=== PATIENT | female | born 1990 | race Caucasian/White ===

== ENCOUNTER 2025-05-11 05:25 | Inpatient (IN) ==
--- NOTE | 2025-05-08 10:28 | Anesthesiology Consultation ---
Date of Service May 08, 2025 Assessment & Plan (1) Encounter for pre-operative examination: - Per optical design engineer on 05/08/25: No known infectious disease contacts, current infectious disease symptoms in past 10 days or COVID positive test result in the past 30 days. Chart Review Chart Review: data entry associate initiated History Surgery Operation Date: 05/11/25 08:50 Proposed Procedures p Section in LD (Delivery of baby through abdominal incision ) - Lynnette Rivera MD, FACOG Height/Weight Height: 5 ft 3 in Weight: 83.915 kg Allergies Allergy/AdvReac Type Severity Reaction Status Date / Time Cephalosporins Allergy Unknown Hives Verified 05/08/25 09:38 Penicillins Allergy Unknown Hives Uncoded 05/08/25 09:38 Medications Home Medications Medication Instructions Recorded Confirmed Last Taken fluticasone propionate 50 1 spray intranasal DAILY PRN 02/09/25 05/08/25 Unknown mcg/actuation nasal Congestion spray,suspension breast pump #1 ea 04/13/25 05/03/25 Unknown aspirin 81 mg tablet,delayed 81 mg PO HS 05/08/25 05/08/25 Unknown release prenat.vits,emilia,vpd-pbyx-uhwzi 1 tab PO HS 05/08/25 05/08/25 Unknown Past Medical History Medical History (Updated 05/08/25 @ 10:27 by Jamila Vincent PA-C) History of COVID-19 approx 2021 or 2022. No hx hospitalization. Polycystic ovary syndrome Twin gestation in third trimester breech presentation Past Family History Family History Mother Hypertension Diabetes Father COPD (chronic obstructive pulmonary disease) Dyslipidemia Basal cell carcinoma (BCC) Sister No problems noted. Sister Dyslipidemia Denies family history of Ovarian cancer Prostate cancer Myocardial infarction Breast cancer Colorectal cancer Past Surgical History Surgical History S/P wisdom tooth extraction Social History Smoking Status: Never smoker Do You Dip or Chew Tobacco: No Hx Alcohol Use: Yes (hx social, none while ) Alcohol type: beer, wine and hard liquor Hx Substance Use: No substance use type: does not use
[2025-05-11] MEDS ORDERED: LACTATED RINGER'S 1,000 ML IV SCH ×2 (05:30→08:51)
[2025-05-11 05:56] LABS: Hematocrit (blood only) 36.5 % (37.0-47.0); Hemoglobin 12.4 g/dl (12.0-16.0); Mean Corpuscular Hemoglobin 30.6 pg (25.0-34.0); Mean Corpuscular Volume 90.1 fL (80.0-100.0); Platelet Count 208 K/uL (130-400); RDW Standard Deviation 42.1 fL (36.4-46.3); Red Blood Count 4.05 M/uL (4.20-5.40); White Blood Count 8.35 K/ul (4.8-10.8)
[2025-05-11] MEDS: LACTATED RINGER'S 1,000 ML IV SCH ×2 (05:58→07:11)
[2025-05-11] MEDS ORDERED: CITRIC ACID/SODIUM CITRATE 15 ML UDC PO SCH (06:00)
[2025-05-11] MEDS ORDERED: ACETAMINOPHEN 500 MG TAB PO SCH (06:00)
[2025-05-11] MEDS: ACETAMINOPHEN 500 MG TAB PO SCH (06:28)
[2025-05-11] MEDS: CLINDAMYCIN/D5W 900 MG/50 ML BAG IV SCH (07:11)
--- NOTE | 2025-05-11 07:13 | History & Physical Report ---
Date of Service May 11, 2025 Assessment & Plan (1) Dichorionic diamniotic twin gestation: Plan: section. The patient was counseled to the nature of the procedure including alternatives such as labor. Risks were discussed including bleeding infection injury to bowel bladder ureter vessels and even baby. Deep Vein thrombosis, pulmonary embolus discussed. Breakdown of incision reviewed. Deep vein thrombosis pulmonary embolus hernia and failure of the incision to heal were discussed Patient verbalized understanding of this and was given ample time to ask questions Note insert twin presentation breech breech we discussed increased complication rates with twins including hemorrhage fully discussed with the patient Admission and Anticipated Discharge Date Admission Date: May 11, 2025 History of Present Illness Primary Care Provider: Iona Ramey MD DD Calculator Estimated Delivery Date Method Current WG Current Estimate 05/23/25 LMP (Certain) 38w 1d Other Estimates 05/23/25 Ultrasound #1 38w 1d # 2 LMP: 08/16/24 : 1 Full term: 0 Premature: 0 Total Number of Induced Abortions: 0 Total Number of Spontaneous Abortions: 0 Ectopics: 0 Multiple births: 0 Number of Living Children: 0 and Delivery Plans Conceived on Femara IUGR TWIN A - resolved at 27wks *Twice weekly NST/DVP@Dx *Weekly doppler@Dx *Growth US Q3-4wk @Dx All Twins *Baby ASA daily start 12-28wks until delivery *Anatomy scan @20wks *Serial growth US/S starting @24wks *Wkly NST's @32wks, twice wkly @36wks(nml growth) *Twice wkly NST's @32wks, ICSI or abnml growth *MD visits Q2wks @24wks & Qwk @32wks Twin Del Plan *DI/DI Deliver @38wks C/S SCHEDULED FOR 05/11/[address] SWEENEY AND DR. MENDOZA ASSIST Panorama could not yield results *pt declines redraw Allergies Allergy/AdvReac Type Severity Reaction Status Date / Time Cephalosporins Allergy Unknown Hives Verified 05/11/25 05:39 Penicillins Allergy Unknown Hives Verified 05/11/25 05:39 Home Medications Medication Instructions Recorded Confirmed Type breast pump #1 ea 04/13/25 05/10/25 Rx aspirin 81 mg tablet,delayed 81 mg PO HS 05/08/25 05/11/25 History release prenat.vits,emiila,utz-isgg-itlip 1 tab PO HS 05/08/25 05/11/25 History Patient History Medical History History of COVID-19 approx 2021 or 2022. No hx hospitalization. Polycystic ovary syndrome Twin gestation in third trimester breech presentation Surgical History S/P wisdom tooth extraction Family History Mother Hypertension Diabetes Father COPD (chronic obstructive pulmonary disease) Dyslipidemia Basal cell carcinoma (BCC) Sister No problems noted. Sister Dyslipidemia Denies family history of Ovarian cancer Prostate cancer Myocardial infarction Breast cancer Colorectal cancer Social History Smoking Status: Never smoker Second Hand Exposure: No; Do You Dip or Chew Tobacco: No; Hx Alcohol Use: Yes (hx social, none while ) Alcohol type: beer, wine and hard liquor Alcohol Intake Frequency: Monthly or Less Hx Substance Use: No Preferred Language: [place] Communication Ability: Effective Visual Impairment: No Limitations Hearing Ability: Normal Lens Polisher Hand Required: No Beliefs That Will Affect Care: None marital status: marital status details: Stu Wu (40) [phone] Current Living Situation: Spouse Current Living Situation Comment: lives with spouse, cat-spouse changing litter current occupational status: employed 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 [employer] Other Information That Helps Us Care for You: No Feels Safe at Home: Yes Safety Concerns: Feels Safe At This Time Childhood Exposure to Second-Hand Smoke: Yes Diet: regular caffeine: Yes during the past year weight has: increased > 10 lbs Dental Care, Regularly: No Physical Activity Frequency: Daily Seatbelt Use: always Sunscreen Use: Yes Assistive Devices: Glasses Physical Exam Constitutional: WD/WN, vitals as above well developed and well nourished Respiratory: normal respiratory effort, lungs clear to auscultation normal respiratory effort Cardiovascular: RRR, no murmur, no edema Gastrointestinal (Abdomen): normal bowel sounds, soft, nontender, no hepatosplenomegaly Results & Data Vital Signs (Past 12 Hours) Vital Signs Temp Pulse Resp BP O2 Del Method 05/11/25 07:04 Room Air 05/11/25 06:59 18 05/11/25 06:59 98.2 F 76 18 123/73 05/11/25 06:58 76 123/73 05/11/25 05:42 86 123/74 05/11/25 05:40 98.2 F 18 Coding Level of Care Code None Diagnoses Dichorionic diamniotic twin gestation O30.049
[2025-05-11] MEDS ORDERED: PHENYLEPHRINE HCL 25 MG/250 ML NSS IV ONE (07:33)
[2025-05-11] MEDS: CITRIC ACID/SODIUM CITRATE 15 ML UDC PO SCH (07:34)
[2025-05-11] MEDS ORDERED: MoRPHine SULFATE PF 1 MG/ML 10 ML AMP/VIAL ONE (07:35)
[2025-05-11] MEDS: GENTAMICIN SULFATE 420 MG in DEXTROSE 5% 100 ML IV SCH (07:53)
[2025-05-11] MEDS ORDERED: OXYTOCIN 10 UNITS/ML VIAL ONE (07:58)
[2025-05-11] MEDS ORDERED: ONDANSETRON INJ 2 MG/ML 2 ML VIAL ONE (07:58)
[2025-05-11] MEDS: CARBOPROST TROMETHAMINE 250 MCG/ML AMPUL IM ONE (08:10)
[2025-05-11] MEDS ORDERED: METOCLOPRAMIDE HCL INJ 5 MG/ML 2 ML VIAL ONE (08:23)
[2025-05-11] MEDS ORDERED: NALOXONE HCL 0.4 MG/1 ML VIAL/CARP IV PRN ×2 (08:28→08:52)
[2025-05-11] MEDS ORDERED: LACTATED RINGER'S 500 ML IV PRN ×2 (08:28→08:52)
[2025-05-11] MEDS ORDERED: diphenhydrAMINE 50 MG/ML VIAL IV PRN ×2 (08:28→08:52)
[2025-05-11] MEDS ORDERED: MoRPHine SULFATE 2 MG/ML CARP IV PRN ×2 (08:28→08:52)
[2025-05-11] MEDS ORDERED: HYDROmorphone INJ 0.5 MG/0.5 ML SYR IV PRN ×2 (08:28→08:52)
[2025-05-11] MEDS ORDERED: MEPERIDINE HCL 25 MG/ML CARP/VIAL IV PRN ×2 (08:28→08:52)
[2025-05-11] MEDS ORDERED: NALOXONE HCL 0.08 MG in SYRINGE 1.8 ML IV PRN ×2 (08:28→08:52)
[2025-05-11] MEDS ORDERED: NALOXONE HCL 1 MG in SODIUM CHLORIDE 0.9% 1,000 ML IV PRN ×2 (08:28→08:52)
[2025-05-11] MEDS ORDERED: NALBUPHINE HCL INJ 10 MG/ML AMP IV PRN ×2 (08:28→08:52)
[2025-05-11] MEDS ORDERED: ONDANSETRON INJ 2 MG/ML 2 ML VIAL IV PRN ×2 (08:28→08:52)
[2025-05-11] MEDS ORDERED: PROMETHAZINE 6.25 MG/50.25 ML BAG IV PRN ×2 (08:28→08:52)
[2025-05-11] MEDS ORDERED: DC INTRASPINAL MORPHINE SCH ×2 (08:30→09:00)
[2025-05-11] MEDS ORDERED: SODIUM CHLORIDE 0.9% 1,000 ML IV SCH (08:30)
[2025-05-11] MEDS ORDERED: NO NARCOTICS OR SEDATIVES SCH ×2 (08:30→09:00)
--- NOTE | 2025-05-11 08:47 | Operative Report ---
Post Operative Report Pre & Post Diagnosis Operation Date: 05/11/25 07:30 Pre-Op Diagnosis: Dichorionic diamniotic twin gestation I identified the patient and participated in the time-out.: Yes Procedure Operation Date: 05/11/25 07:30 Low segment transverse section Surgeon Lynnette Rivera MD, FACOG Water Plant Operator Dr. Trevino Quantitative Blood Loss (QBL) 395 Findings Consistent with Post-Op Diagnosis Specimens Cord blood placenta Description of Procedure Regional anesthetic had been given by anesthesia patient was prepped and draped with a leftward tilt preoperative antibiotics had been given in appropriate timing by anesthesiology. Once the prep was allowed to fully dry timeout was performed. Pickups with teeth were used to test the incision area was found to be adequate for incision as the patient did not feel sharp pain. Scalpel was used to make a Pfannenstiel incision on the lower abdomen. We then cut through the subcutaneous fat down to the level of the anterior rectus sheath fascia this was cut in the midline and then extended laterally with the curved Fuller scissors. At this stage we then placed 2 Panfilo clamps on the anterior aspect of the fascia. Using the curved Fuller's we are able to dissect the fascia superiorly away from the rectus muscles. Care was taken to maintain hemostasis. Pnafilo clamps were then placed to the inferior aspect of the anterior sheath of the fascia. Fascia was then dissected away from the rectus muscles inferiorly towards the pubic bone. A Panfilo was then placed in the midline both inferiorly and superiorly. This was to allow exposure by retraction rectus muscles were in the midline with were then able to cut through the peritoneum and then enter the peritoneal cavity. Opening was enlarged to allow exposure of the peritoneal cavity both superiorly and inferiorly. Once adequate space was obtained a bladder retractor was placed to expose the lower segment Metzenbaums were used to dissect the bladder flap inferiorly away from the uterus. This was done sharply bladder retractor was then repositioned to expose the lower segment of the uterus Fresh scalpel was used to make a low transverse incision on the uterus. Uterus was then entered bluntly with the operators finger, membranes ruptured and the opening was enlarged using the operators fingers bluntly pulling superiorly and inferiorly to allow exposure. Care was taken to enter the uterine cavity without rupture of membranes baby a was footling breech I was able to grab the foot without rupture of membranes and then rupture the membranes the other foot was then easily grasped gentle traction on the baby with the back anterior delivering then the torso the arms were swept anteriorly resulting in easy delivery of the head there was no excessive extension of the neck live vigorous female The exact same process was repeated on the second baby including not rupturing membranes until the foot was grasped and then delivering an footling breech torso arms swept forward towards the chest and then delivery of the head once both deliveries were done another live vigorous female infant cord had been clamped curved clamps on a straight clamps on be placenta was removed with traction we ensured all placenta was removed with a sponge. Uterus was then exteriorized. IV Pitocin had been started by anesthesia tone improved there were no extensions the uterus was then closed using 0 Monocryl in a 2 layer closure the first layer closed in a running locked fashion from left to right and then a second closure from left to right in a running nonlocked fashion. At this stage hemostasis was excellent. Uterus was placed back in the peritoneal cavity with suction irrigation out and inspection of the uterus at this stage revealed excellent hemostasis. Note I did use Hemabate not because the uterus was excessively boggy but because of the nature of twins with a higher propensity towards uterine atony with twins Retractors were removed urine color was clear at this stage of the case we inspected the rectus muscles they were hemostatic fascia was closed with 0 Vicryl subcutaneous fat was irrigated and closed with 3-0 Vicryl skin closed with 4-0 subcuticular Monocryl Note the adnexa and uterus were normal there were no uterine septum I attest to the content of the Intraoperative Record and any orders documented therein. Any exceptions are noted below. OB Procedure Charges 23030 (Twins!)
[2025-05-11] MEDS ORDERED: SENNA 8.6 MG TAB PO PRN (08:51)
[2025-05-11] MEDS ORDERED: MAGNESIUM HYDROXIDE SUSP 30 ML UDC PO PRN (08:51)
[2025-05-11] MEDS ORDERED: HYDROCORTISONE ACETATE 25 MG SUPP PR PRN (08:51)
[2025-05-11] MEDS ORDERED: BENZOCAINE 20% SPRY 85 APPLN/85 GM CAN EXT PRN (08:51)
[2025-05-11] MEDS ORDERED: CALCIUM CARBONATE 500 MG CHEWABLE TAB PO PRN (08:51)
--- NOTE | 2025-05-11 08:53 | Anesthesiology Progress Note ---
Date of Service May 11, 2025 Anesthesia Post Procedure Vital Signs Vital Signs: Temp Pulse Resp BP Pulse Ox O2 Del Method 05/11/25 08:51 73 98 05/11/25 08:47 68 102/59 L 05/11/25 08:46 69 100 05/11/25 07:04 Room Air 05/11/25 06:59 18 05/11/25 06:59 36.8 C 76 18 123/73 05/11/25 06:58 76 123/73 05/11/25 05:42 86 123/74 05/11/25 05:40 36.8 C 18 Pain Intensity Lower Abdomen: Pain Intensity: 4 Transfer of Care Handoff Completed per policy Notes Mental Status: alert / awake / arousable Nausea / Vomiting: adequately controlled Pain: adequately controlled Airway Patency, RR, SpO2: stable & adequate BP & HR: stable & adequate Hydration State: stable & adequate Neuraxial Anesthesia: was administered and sensory block is resolving Anesthetic Complications: no major complications apparent and Pt Satisfied with anesthetic care
[2025-05-11] MEDS: KETOROLAC 30 MG/ML VIAL IV SCH (09:29)
[2025-05-11] MEDS: DIPHTHER/TETAN/PERTUS Vaccine (Tdap, Adol/Adult) 0.5mL IM ONE (09:29)
[2025-05-11] MEDS: OXYTOCIN 20 UNITS/LR 1,002 ML IV SCH (09:30)
[2025-05-11] MEDS: SIMETHICONE 80 MG CHEW PO SCH (12:35)
[2025-05-11] MEDS: ONDANSETRON INJ 2 MG/ML 2 ML VIAL IV PRN (13:30)
[2025-05-11] MEDS: ACETAMINOPHEN 325 MG TAB PO SCH (15:01)
[2025-05-11] MEDS: DOCUSATE SODIUM 100 MG CAP PO SCH (22:43)
[2025-05-12] MEDS ORDERED: HYDROmorphone INJ 0.5 MG/0.5 ML SYR IV PRN (02:52)
[2025-05-12] MEDS ORDERED: diphenhydrAMINE 50 MG/ML VIAL IV PRN (02:52)
[2025-05-12] MEDS ORDERED: diphenhydrAMINE Capsule 25 MG CAP PO PRN (02:52)
[2025-05-12] MEDS ORDERED: PROMETHAZINE 12.5 MG/50.5 ML BAG IV PRN (02:52)
[2025-05-12 06:38] LABS: Hematocrit (blood only) 29.3 % (37.0-47.0); Hemoglobin 9.9 g/dl (12.0-16.0); Immature Granulocytes # (auto) 0.03 K/uL (0.01-0.20); Immature Granulocytes % (auto) 0.4 %; Mean Corpuscular Hemoglobin 31.1 pg (25.0-34.0); Mean Corpuscular Volume 92.1 fL (80.0-100.0); Platelet Count 191 K/uL (130-400); RDW Standard Deviation 44.2 fL (36.4-46.3); Red Blood Count 3.18 M/uL (4.20-5.40); White Blood Count 8.51 K/ul (4.8-10.8)
--- NOTE | 2025-05-12 06:50 | Obstetrical Progress Note ---
Date of Service May 12, 2025 Assessment & Plan (1) Dichorionic diamniotic twin gestation: Postoperative day #1 from section doing well no extremity pain she is ambulating no excessive bleeding continue current care Subjective Ambulation: ambulating normally Voiding: no voiding problems Passing Gas:: Yes Diet Tolerance:: regular diet Lochia:: Small Physical Exam Constitutional WD/WN, vitals as above well developed and well nourished Respiratory normal respiratory effort, lungs clear to auscultation normal respiratory effort Cardiovascular RRR, no murmur, no edema Gastrointestinal (Abdomen) normal bowel sounds, soft, nontender, no hepatosplenomegaly Results & Data Vital Signs (Past 12 Hours) Vital Signs Temp Pulse Resp BP Pulse Ox O2 Del Method 05/12/25 03:55 98.1 F 78 16 120/72 97 Room Air 05/12/25 03:00 18 95 05/12/25 02:00 18 95 05/12/25 01:00 18 94 05/12/25 00:33 98.8 F 90 16 102/59 L 95 Room Air 05/12/25 00:00 18 94 05/11/25 23:00 18 95 05/11/25 22:00 18 93 05/11/25 21:00 18 94 05/11/25 20:00 18 94 05/11/25 19:00 16 96 05/11/25 18:59 99.1 F 82 16 133/80 96 Room Air
[2025-05-12] MEDS: FERROUS SULFATE 325 MG TAB PO SCH (08:03)
[2025-05-12] MEDS: PRENATAL VITAMIN 1 TAB PO SCH (08:03)
[2025-05-12] MEDS ORDERED: KETOROLAC 30 MG/ML VIAL IV PRN (08:40)
[2025-05-12] MEDS: IBUPROFEN 600 MG TAB PO SCH (11:04)
[2025-05-13 06:37] LABS: Hematocrit (blood only) 26.6 % (37.0-47.0); Hemoglobin 8.8 g/dl (12.0-16.0)
--- NOTE | 2025-05-13 10:07 | Obstetrical Progress Note ---
Date of Service May 13, 2025 Assessment & Plan (1) Encounter for care and examination after delivery: Plan Day 2 status post section for twin . Patient doing well. Continue with routine care. Subjective Ambulation: ambulating normally Voiding: no voiding problems Passing Gas:: Yes Diet Tolerance:: regular diet Lochia:: Moderate Physical Exam Constitutional WD/WN, vitals as above Respiratory normal respiratory effort; no respiratory distress and no labored breathing Cardiovascular Extremities: no calf tenderness Gastrointestinal (Abdomen) Inspection/Auscultation: abdomen normal to inspection; abdomen not distended Percussion/Palpation: abdomen soft; abdomen nontender, no guarding and abdomen not rigid Genitourinary OB Exam Abdomen: + fundal height Fundus: + firm and + relation to umbilicus (Below); not tender or not boggy Results & Data Vital Signs (Past 12 Hours) Vital Signs Temp Pulse Pulse Resp BP Pulse Ox O2 Del Method 05/13/25 08:30 36.7 C 83 16 118/80 98 Room Air 05/12/25 23:05 36.9 C 81 16 122/83 96 Room Air
[2025-05-13] MEDS: SODIUM CHLORIDE 0.9% 1,000 ML IV SCH (19:28)
[2025-05-13] MEDS: MoRPHine SULFATE PF 1 MG/ML 10 ML AMP/VIAL INT SPINAL ONE ×2 (19:28)
[2025-05-13] MEDS: IBUPROFEN 600 MG TAB PO PRN (19:38)
[2025-05-13] MEDS: ACETAMINOPHEN 325 MG TAB PO PRN (19:39)
[2025-05-13 21:19] VITALS: RESP 18
[2025-05-13 23:04] VITALS: O2SAT 99
--- NOTE | 2025-05-14 06:04 | Obstetrical Progress Note ---
Date of Service <Kris Meza MD - Last Filed: 05/14/25 07:02> May 14, 2025 Assessment & Plan <Kris Meza MD - Last Filed: 05/14/25 07:02> (1) care and examination: 34yo post-op day 3 s/p section Fells well today. Vital signs stable Continue post- care Encourage ambulation and and bottle feeding Pain controlled with Ibuprofen, Tylenol Vitals and Hgb stable Discharge home today, follow up with OB provider in 6 weeks DC instructions discussed <Logan Adam MD - Last Filed: 05/14/25 07:52> (1) care and examination: Subjective <Kris Meza MD - Last Filed: 05/14/25 07:02> 34yo post-op day 3 s/p section Ambulation: Ambulating normally Voiding: No voiding problems Passing Gas:: Yes Diet Tolerance:: regular diet Lochia:: Small Feeding Type:: breast and bottle feeding Current Pain Level: 2/10 controlled with Tylenol, Ibuprofen Resting comfortably this AM in NAD. Denies SHARMA, CP, SOB, N/V/D, LE pain/swelling. Physical Exam <Kris Meza MD - Last Filed: 05/14/25 07:02> General: patient resting comfortably, NAD, non-toxic in appearance, answers questions appropriately Skin: warm, dry, intact Heart: S1/S2 heard, regular, no m/r/g Lungs: equal air entry bilaterally, no rales/rhonchi/wheezes Abd: Normoactive BS, soft, NT/ND, uterine fundus firm below umbilicus, incision clean, dry, and intact Ext: warm, no clubbing/cyanosis or edema, Debbie's neg Neuro: nonfocal, patient AAOx4, speech intact, no facial droop, moving all extremities on command Results & Data <Kris Meza MD - Last Filed: 05/14/25 07:02> Vital Signs (Past 12 Hours) Vital Signs Temp Pulse Pulse Resp BP Pulse Ox O2 Del Method 05/13/25 23:02 36.9 C 77 18 130/82 99 Room Air 05/13/25 20:05 36.9 C 90 18 133/88 Room Air Supervising Physician <Logan Adam MD - Last Filed: 05/14/25 07:52> Co-Signing Physician Notes Patient seen with resident and agree with the above findings and plan. Stable for discharge today Resident Activity Tracking <Kris Meza MD - Last Filed: 05/14/25 07:02> Resident Involvement: Resident Care Provided Care Provided: OB Delivery (PP)
[2025-05-14 07:11] VITALS: TEMP 98.8
[2025-05-14 11:17] VITALS: BP 120/72; PULSE 90
== END 2025-05-14 11:40 | disposition home or self-care (01) | DRG 788 ==
LOC: 4S1 05:25 → EDSTATUS 10:20 → 4E2 11:15